=== PATIENT | female | born 1990 | race Caucasian/White ===

== ENCOUNTER 2017-07-30 09:49 | Inpatient (IN) | payer OTHER ==
[2017-07-30] VITALS (11 sets, daily range): BP systolic 108–128; BP diastolic 57–78
[~2017-07-30] VITALS: Ht 162.6 cm; Wt 76.2 kg
[2017-07-30 10:36] LABS: EOSINOPHIL (%) 0.1 % (0-5); HEMATOCRIT 38.8 % (36.0-46.0); IMMATURE GRANULOCYTE (%) 1.5 % (0.0-0.7); IMMATURE GRANULOCYTE COUNT 0.2 K/uL; INSTRUMENT ABS NEUTROPHIL CT 11.5 K/uL; LYMPHOCYTE COUNT 1.5 K/uL (1.0-2.8); MCH 30.1 PG (29.0-34.0); MCV 88.4 FL (83-99); MEAN PLAT.VOLUME 11.4 uM^3 (9.5-12.4); MONOCYTE COUNT 0.9 K/uL (0-0.8); NEUTROPHIL (%) 81.2 % (45-76); NEUTROPHIL COUNT 11.5 K/uL (1.8-6.4); PLATELET COUNT 200 K/uL (156-360); RBC DIS.WIDTH-SD 42.2 % (39-53); RED BLOOD COUNT 4.39 M/uL (3.80-5.20); WHITE BLOOD COUNT 14.1 K/uL (4.1-10.2)
[2017-07-30] MEDS ORDERED: IBUPROFEN800 MG PO (14:29)
[2017-08-01 08:27] VITALS: BP 114/71
[2017-08-01 14:44] VITALS: BP 109/53
== END 2017-08-01 19:10 | disposition home or self-care (01) | DRG 775 ==
LOC: LDRP-OP 09:49 → 2WEST 09:50 → LDRP-OP 09-16 11:42
PROVIDERS: Midwife
PROC: 10E0XZZ Delivery of Products of Conception, External Approach (ICD-10-PCS; principal; 2017-07-30)
DX: O71.4 Obstetric high vaginal laceration alone (principal); O26.03 Excessive weight gain in pregnancy, third trimester; Z3A.37 37 weeks gestation of pregnancy; Z37.0 Single live birth
CPT/HCPCS: 85025; C1755; J0595; J7120